=== PATIENT | female | born 1990 | race American Indian/Alaskan Native ===

== ENCOUNTER 2022-04-12 10:41 | Emergency (ER) | payer MEDICAID ==
[2022-04-12 12:12] VITALS: BP 107/67
[2022-04-12] MEDS ORDERED: dexAMETHasone 4 MG/ML VIAL PO ONE (12:30)
[2022-04-12] MEDS ORDERED: PENICILLIN G BENZATHINE 1.2 MILLION UNIT/2 ML INJ IM STA (12:30)
--- NOTE | 2022-04-12 12:39 | Emergency Department Report ---
ED ENT HPI - General Chief complaint: Sore Throat Stated complaint: SORE THROAT/FEVER Time Seen by Provider: 04/12/22 12:30 Source: patient Mode of arrival: Ambulatory Limitations: No Limitations - History of Present Illness MD complaint: sore throat -: Gradual, days(s) (3) Quality: dull Improves with: none Worsens with: swallowing, eating Associated Symptoms: sore throat. denies: gum swelling, toothache, tinnitus, discharge from ear, rhinorrhea - Related Data Previous Rx's Medication Instructions Recorded Last Taken Type Acetaminophen [Acetaminophen TAB] 325 mg PO Q6HR PRN #20 tablet 07/25/15 Unknown Rx metroNIDAZOLE [Flagyl TAB] 250 mg PO Q8HR #21 tablet 07/25/15 Unknown Rx Chlorhexidine Mouthwash [Peridex] 15 ml MM BID #1 bottle 04/12/22 Unknown Rx Lidocaine Viscous 2% 5 ml MM Q3H PRN #120 udc 04/12/22 Unknown Rx Allergies Allergy/AdvReac Type Severity Reaction Status Date / Time No Known Allergies Allergy Unverified 07/25/15 15:10 ED Dental HPI - General Chief complaint: Sore Throat Stated complaint: SORE THROAT/FEVER Time Seen by Provider: 04/12/22 12:30 Source: patient Mode of arrival: Ambulatory Limitations: No Limitations - Related Data Previous Rx's Medication Instructions Recorded Last Taken Type Acetaminophen [Acetaminophen TAB] 325 mg PO Q6HR PRN #20 tablet 07/25/15 Unknown Rx metroNIDAZOLE [Flagyl TAB] 250 mg PO Q8HR #21 tablet 07/25/15 Unknown Rx Chlorhexidine Mouthwash [Peridex] 15 ml MM BID #1 bottle 04/12/22 Unknown Rx Lidocaine Viscous 2% 5 ml MM Q3H PRN #120 udc 04/12/22 Unknown Rx Allergies Allergy/AdvReac Type Severity Reaction Status Date / Time No Known Allergies Allergy Unverified 07/25/15 15:10 ED Review of Systems ROS: Stated complaint: SORE THROAT/FEVER Other details as noted in HPI Comment: All other systems reviewed and negative ED Past Medical Hx - Social History Smoking Status: Never Smoker Substance Use Type: None - Medications Home Medications: Home Medications Medication Instructions Recorded Confirmed Last Taken Type Acetaminophen [Acetaminophen TAB] 325 mg PO Q6HR PRN #20 tablet 07/25/15 Unknown Rx metroNIDAZOLE [Flagyl TAB] 250 mg PO Q8HR #21 tablet 07/25/15 Unknown Rx Chlorhexidine Mouthwash [Peridex] 15 ml MM BID #1 bottle 04/12/22 Unknown Rx Lidocaine Viscous 2% 5 ml MM Q3H PRN #120 udc 04/12/22 Unknown Rx ED Physical Exam - General Limitations: No Limitations General appearance: alert, in no apparent distress - Head Head exam: Present: atraumatic, normocephalic - Eye Eye exam: Present: normal appearance - ENT ENT exam: Present: normal orophraynx, mucous membranes moist, other (Posterior pharynx is erythematous with some exudate to the right side. No evidence of an abscess. Airway patent tongue uvula midline normal voice no drooling.) - Neck Neck exam: Present: normal inspection, lymphadenopathy (Tonsillar) - Respiratory Respiratory exam: Present: normal lung sounds bilaterally. Absent: respiratory distress - Cardiovascular Cardiovascular Exam: Present: regular rate, normal rhythm. Absent: systolic murmur, diastolic murmur, rubs, gallop - GI/Abdominal GI/Abdominal exam: Present: soft, normal bowel sounds - Extremities Exam Extremities exam: Present: normal inspection - Back Exam Back exam: Present: normal inspection - Neurological Exam Neurological exam: Present: alert, oriented X3 - Psychiatric Psychiatric exam: Present: normal affect, normal mood - Skin Skin exam: Present: warm, dry, intact, normal color. Absent: rash ED Course Vital Signs 04/12/22 12:09 Temperature 99.1 F Pulse Rate 76 Respiratory 16 Rate Blood Pressure 107/67 [Left] O2 Sat by Pulse 100 Oximetry ED Medical Decision Making - Medical Decision Making 31-year-old with no history of any compromised nontoxic appearance patient is euvolemic with no trismus no airway compromise unable to tolerate p.o. given history and examination low suspicion for this presentation being caused by peritonsillar abscess, Rodney, bacterial tracheitis, acute HIV, epiglottitis, retropharyngeal abscess. Critical care attestation.: If time is entered above; I have spent that time in minutes in the direct care of this critically ill patient, excluding procedure time. ED Disposition Clinical Impression: Exudative pharyngitis Disposition: HOME / SELF CARE / HOMELESS Is pt being admited?: No Does the pt Need Aspirin: No Condition: Stable Instructions: Pharyngitis, Strep Throat, Adult, Sore Throat Prescriptions: Lidocaine Viscous 2% 5 ml MM Q3H PRN #120 udc PRN Reason: Pain, Moderate (4-6) Chlorhexidine Mouthwash [Peridex] 15 ml MM BID #1 bottle Referrals: [facility] [Provider Group] - 3-5 Days
== END 2022-04-12 13:05 | disposition home or self-care (01) ==
LOC: ED 10:41
DX: J02.8 Acute pharyngitis due to other specified organisms (principal)
CPT/HCPCS: 96372; 99282; J0561; J1100

== ENCOUNTER 2022-06-22 12:02 | Emergency (ER) | payer MEDICAID ==
--- NOTE | 2022-06-22 13:30 | Emergency Department Report ---
- General Chief Complaint: Upper Respiratory Infection Stated Complaint: COUGH Time Seen by Provider: 06/22/22 12:57 Source: patient Mode of arrival: Ambulatory Limitations: No Limitations - History of Present Illness Initial Comments: 31-year-old female who presents with dry cough associated with sore throat that started about a week or 2 ago associated with son with same symptoms. No fever or chills reported. Patient symptoms started shortly after the 4-year-old son had is 4th-year immunization shots. No other modifying or associated factors reported. - Related Data Previous Rx's Medication Instructions Recorded Last Taken Type Acetaminophen [Acetaminophen TAB] 325 mg PO Q6HR PRN #20 tablet 07/25/15 Unknown Rx metroNIDAZOLE [Flagyl TAB] 250 mg PO Q8HR #21 tablet 07/25/15 Unknown Rx Chlorhexidine Mouthwash [Peridex] 15 ml MM BID #1 bottle 04/12/22 Unknown Rx Lidocaine Viscous 2% 5 ml MM Q3H PRN #120 udc 04/12/22 Unknown Rx Benzonatate [Tessalon Perles] 100 mg PO BID 5 Days #10 cap NS 06/22/22 Unknown Rx Allergies Allergy/AdvReac Type Severity Reaction Status Date / Time No Known Allergies Allergy Unverified 07/25/15 15:10 ED Review of Systems ROS: Stated complaint: COUGH Other details as noted in HPI Comment: All other systems reviewed and negative ENT: throat pain, congestion. denies: ear pain Respiratory: cough (Dry) ED Past Medical Hx - Past Medical History Previous Medical History?: No - Surgical History Additional Surgical History: - Social History Smoking Status: Never Smoker - Medications Home Medications: Home Medications Medication Instructions Recorded Confirmed Last Taken Type Acetaminophen [Acetaminophen TAB] 325 mg PO Q6HR PRN #20 tablet 07/25/15 Unknown Rx metroNIDAZOLE [Flagyl TAB] 250 mg PO Q8HR #21 tablet 07/25/15 Unknown Rx Chlorhexidine Mouthwash [Peridex] 15 ml MM BID #1 bottle 04/12/22 Unknown Rx Lidocaine Viscous 2% 5 ml MM Q3H PRN #120 udc 04/12/22 Unknown Rx Benzonatate [Tessalon Perles] 100 mg PO BID 5 Days #10 cap NS 06/22/22 Unknown Rx ED Physical Exam - General Limitations: No Limitations General appearance: alert, in no apparent distress - Head Head exam: Present: normal inspection - Eye Eye exam: Present: normal appearance Pupils: Present: normal accommodation - ENT ENT exam: Present: normal exam, normal orophraynx, mucous membranes moist - Neck Neck exam: Present: normal inspection. Absent: tenderness, lymphadenopathy - Respiratory Respiratory exam: Present: normal lung sounds bilaterally. Absent: respiratory distress, chest wall tenderness, accessory muscle use - Cardiovascular Cardiovascular Exam: Present: regular rate, normal rhythm, normal heart sounds - GI/Abdominal GI/Abdominal exam: Present: soft, normal bowel sounds. Absent: distended, tenderness - Extremities Exam Extremities exam: Present: normal inspection, normal capillary refill. Absent: tenderness, pedal edema - Back Exam Back exam: Absent: tenderness - Neurological Exam Neurological exam: Present: alert, oriented X3 - Psychiatric Psychiatric exam: Present: normal affect, normal mood - Skin Skin exam: Present: warm, normal color ED Course Vital Signs 06/22/22 06/22/22 12:10 12:25 Temperature 98.4 F Pulse Rate 70 Respiratory 18 Rate Blood Pressure 118/86 [Right] O2 Sat by Pulse 98 98 Oximetry ED Medical Decision Making - Radiology Data CXR noted to be negative for any acute findings - Medical Decision Making Here with a sore throat associated with a dry cough for the last 1 to 2 weeks--this is likely viral but cannot rule out any strep so we will go ahead and order rapid strep and chest x-ray to rule out any pneumonia. CXR without any infiltrate -- consistent with viral URI that patient son likely has Critical care attestation.: If time is entered above; I have spent that time in minutes in the direct care of this critically ill patient, excluding procedure time. ED Disposition Clinical Impression: Sore throat, Viral URI with cough Pharyngitis Qualifiers: Pharyngitis/tonsillitis etiology: unspecified etiology Qualified Code(s): J02.9 - Acute pharyngitis, unspecified Disposition: 01 HOME / SELF CARE / HOMELESS Is pt being admited?: No Does the pt Need Aspirin: No Condition: Stable Instructions: Upper Respiratory Infection, Adult, [id number], Cough, Adult, [id number] Additional Instructions: Increase your daily fluid to help your hydration Call and follow-up with your primary doctor in the next 3 to 5 days for progress Take your cough medicine as prescribed Please do not hesitate to call or return to emergency if your symptoms worsen Prescriptions: Benzonatate [Tessalon Perles] 100 mg PO BID 5 Days #10 cap NS Referrals: PRIMARY CARE, [Primary Care Provider] - 3-5 Days Time of Disposition: 15:38
--- NOTE | 2022-06-22 14:00 | XRay Report ---
CHEST 1 VIEW 06/22/2022 1:38 PM INDICATION / CLINICAL INFORMATION: cough. COMPARISON: None available. FINDINGS: SUPPORT DEVICES: None. HEART / MEDIASTINUM: No significant abnormality. LUNGS / PLEURA: No significant pulmonary or pleural abnormality. No pneumothorax. ADDITIONAL FINDINGS: No significant additional findings. IMPRESSION: 1. No acute findings. Signer Name: Matt Ramon MD Signed: 06/22/2022 1:56 PM Workstation Name: [id number]
[2022-06-22 15:48] VITALS: BP 132/78
== END 2022-06-22 15:54 | disposition home or self-care (01) ==
LOC: ED 12:02
DX: J06.9 Acute upper respiratory infection, unspecified (principal); J02.9 Acute pharyngitis, unspecified; Z98.890 Other specified postprocedural states; Z79.899 Other long term (current) drug therapy
CPT/HCPCS: 71045; 99283